=== PATIENT | female | born 1950 | race Caucasian/White ===

== ENCOUNTER → 2022-06-22 | Day surgery (SDC) | payer OTHER ==
[2022-06-15 09:02] VITALS: BMI 26.7
[~2022-06-22] MED LIST: MIDAZOLAM HCL 2 MG/2 ML SINGLE DOSE VIAL ONE
== END | disposition home or self-care (01) ==
LOC: JASU-SURG 04:06
PROVIDERS: ATTEND Urology
DX: Z53.8 Procedure and treatment not carried out for other reasons (principal)

== ENCOUNTER 2022-07-20 05:09 | Day surgery (SDC) | payer OTHER ==
[2022-07-16 10:41] VITALS: BMI 26.7
[2022-07-20] MEDS ORDERED: PROPOFOL 40 ML ONE (13:54)
[2022-07-20 14:42] VITALS: RESP 18
[2022-07-20 15:33] VITALS: BP 140/73; PULSE 78; TEMP 98.2
== END 2022-07-20 15:42 | disposition home or self-care (01) ==
LOC: JASU-SURG 05:09
PROVIDERS: ATTEND Urology
PROC: 0TF3XZZ Fragmentation in Right Kidney Pelvis, External Approach (ICD-10-PCS; principal; 2022-07-20 12:00)
DX: N20.0 Calculus of kidney (principal)